=== PATIENT | male | born 1990 | race Caucasian/White ===

== ENCOUNTER → 2016-04-28 | Outpatient (CLI) | payer BC ==
--- NOTE | 2016-04-28 17:11 | MR ---
EXAMINATION TYPE: MR angio head wo con DATE OF EXAM: 04/28/2016 4:16 PM COMPARISON: NONE HISTORY: 25-year-old male with migraines TECHNIQUE: High-resolution 3-D time of flight images focusing on the [place] were performed without contrast. 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 In addition, there is an asymmetrically smaller A1 segment right anterior cerebral artery also likely on a congenital basis. Otherwise, both anterior and posterior circulations are widely patent without significant stenosis, o cclusion, or aneurysmal change. 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 No significant stenosis, arterial occlusion, or aneurysmal change seen.
--- NOTE | 2016-04-28 23:15 | MR ---
EXAMINATION TYPE: MR brain wo/w con DATE OF EXAM: 04/28/2016 4:41 PM COMPARISON: NONE HISTORY: Migraines CONTRAST: Standard multiplanar, multisequence MRI departmental protocol utilizing 14 mL intravenous MultiHance gadolinium contrast. FINDINGS: The ventricles and sulci appear normal for age. There is no mass effect nor midline shift. There is no sign of intracranial hemorrhage. There is mild mucosal thickening in the maxillary sinuse s. [place] and white matter structures have fairly normal signal pattern. There is no evidence of cerebr al edema. The corpus callosum appears normal. Sella turcica is normal. Brainstem appears intact. Cont rast images show no pathologic enhancement. IMPRESSION: Normal MRI scan of the brain. Mild maxillary sinusitis is noted.
== END | disposition home or self-care (01) ==
LOC: RADMRIMAIN 14:24
PROVIDERS: ATTEND Psychiatry & Neurology Neurology
DX: D43.2 Neoplasm of uncertain behavior of brain, unspecified (principal)
CPT/HCPCS: 70544; 70553; A9577

== ENCOUNTER 2018-09-30 21:19 | Emergency (ER) | payer BC ==
[2018-09-30] MEDS ORDERED: KETOROLAC 30 MG/ML 1 ML VIAL IM STA (22:22)
[2018-09-30] MEDS ORDERED: LIDOCAINE 5% PATCH TOPICAL STA (22:22)
[2018-09-30] MEDS ORDERED: DIAZEPAM 5 MG/ML 2 ML INJ IVP STA (22:22)
[2018-09-30] MEDS ORDERED: ACET/COD 300 MG/30 MG STARTER PACK 6 TAB BTL PO STA (23:07)
--- NOTE | 2018-09-30 23:09 | ED ---
Back Pain HPI - General Chief Complaint: Back Pain/Injury Stated Complaint: Back pain Time Seen by Provider: 09/30/18 22:00 Source: patient - History of Present Illness Initial Comments: Patient is a 28-year-old male presenting to emergency Department with low back pain. Patient reports a chronic history of low back pain. Patient reports recently seeing a chiropractor for few appointments where he was diagnosed with scoliosis. 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 Patient reports sudden onset of pain earlier today while he was a work. 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 Patient reports left paraspinal pain in the lumbosacral region that radiates along the posterior aspect of the left leg to the popliteal region. Patient reports the pain is exacerbated with extension and alleviated with flexion. Patient denies numbness or tingling in bilateral lower upper extremities. Patient denies saddle paresthesia. Patient denies urinary or bowel incontinence. No red flags. Patient denies abdominal pain, nausea or vomiting. Patient denies chest pain, chest tightness, shortness of breath, one- sided muscle weakness, syncope or dizziness. - Related Data Home Medications Medication Instructions Recorded Confirmed Aspirin/Acetaminophen/Caffeine 1 each PO DIRECTED 01/08/16 01/08/16 [Excedrin Migraine Caplet] Previous Rx's Medication Instructions Recorded Cyclobenzaprine [Flexeril] 10 mg PO TID PRN #15 tab 09/30/18 Allergies Allergy/AdvReac Type Severity Reaction Status Date / Time No Known Allergies Allergy Verified 01/08/16 14:43 Review of Systems ROS Statement: Those systems with pertinent positive or pertinent negative responses have been documented in the HPI. ROS Other: All systems not noted in ROS Statement are negative. Past Medical History Additional Past Medical History / Comment(s): migraine, chronic back pain History of Any Multi-Drug Resistant Organisms: None Reported Past Surgical History: Hernia Repair Past Psychological History: No Psychological Hx Reported Smoking Status: Current every day smoker Past Alcohol Use History: None Reported Past Drug Use History: None Reported General Exam Limitations: no limitations General appearance: alert, in no apparent distress Head exam: Present: atraumatic, normocephalic, normal inspection Eye exam: Present: normal appearance, PERRL, EOMI Pupils: Present: normal accommodation ENT exam: Present: normal exam, mucous membranes moist, normal external ear exam Neck exam: Present: normal inspection, full ROM. Absent: tenderness Respiratory exam: Present: normal lung sounds bilaterally Cardiovascular Exam: Present: regular rate, normal rhythm, normal heart sounds GI/Abdominal exam: Present: soft. Absent: distended, tenderness Extremities exam: Present: normal inspection, full ROM Back exam: Present: normal inspection, tenderness, paraspinal tenderness (Left paraspinal tenderness in the lumbosacral region). Absent: full ROM (Limited range of motion with back extension), CVA tenderness (R), CVA tenderness (L), vertebral tenderness Neurological exam: Present: alert, oriented X3 Psychiatric exam: Present: normal affect, normal mood Skin exam: Present: warm, intact, normal color Course Vital Signs 09/30/18 09/30/18 21:54 23:33 Temperature 98.2 F 97.9 F Pulse Rate 86 77 Respiratory 17 18 Rate Blood Pressure 159/107 O2 Sat by Pulse 99 97 Oximetry Medical Decision Making - Medical Decision Making Patient is a 28-year-old male presenting to emergency Department with low back pain. Based on history of physical examination I suspect the patient to have acute low back.. Patient was given a Lidoderm patch, Toradol and Valium. On reevaluation patient reports she feels better and is ready go home. Patient was also given a Tylenol 3 starter pack and discharged with Flexeril. Patient advised not to drive or operate heavy machinery when taking these medications. Patient advised to follow-up with orthopedics or physical therapy. Strict return parameters were thoroughly discussed with patient who is understanding and agreeable. Case discussed with physician. Disposition Clinical Impression: Mechanical back pain Disposition: HOME SELF-CARE Condition: Stable Instructions (If sedation given, give patient instructions): Acute Low Back Pain (ED) Additional Instructions: Please take prescribed medication as directed. Please follow with orthopedics. Please return to emergency department if symptoms worsen. Prescriptions: Cyclobenzaprine [Flexeril] 10 mg PO TID PRN #15 tab PRN Reason: Muscle Spasm Is patient prescribed a controlled substance at d/c from ED?: No Referrals: Sharon Doty MD [Primary Care Provider] - 1-2 days Karan Trujillo MD [Medical Doctor] - 1-2 days Time of Disposition: 23:09
[2018-09-30 23:34] VITALS: BP 159/107; PULSE 77; RESP 18; TEMP 97.9
== END 2018-09-30 23:32 | disposition home or self-care (01) ==
LOC: EC 21:19
DX: M54.5 Low back pain (principal); F17.200 Nicotine dependence, unspecified, uncomplicated
CPT/HCPCS: 99283; 96374; 96372; J3360; J1885

== ENCOUNTER → 2018-10-02 | Outpatient (CLI) | payer BC ==
--- NOTE | 2018-10-02 16:09 | XR ---
EXAMINATION TYPE: XR lumbosacral spine min 4V DATE OF EXAM: 10/02/2018 COMPARISON: None HISTORY: Sciatica left side TECHNIQUE: Five-view lumbar spine FINDINGS: There 5 lumbar-type vertebral bodies. Pedicles are intact. Disc heights are preserved. Vert ebral body heights are preserved. Alignment is normal. No spondylolytic defects are evident. IMPRESSION: 1. Normal 5 view lumbar spine
== END | disposition home or self-care (01) ==
LOC: RADXRMAIN 13:43
PROVIDERS: ATTEND Internal Medicine
DX: M54.32 Sciatica, left side (principal)
CPT/HCPCS: 72110

== ENCOUNTER → 2019-02-18 | Outpatient (CLI) | payer BC ==
--- NOTE | 2019-02-18 11:20 | XR ---
EXAMINATION TYPE: XR chest 2V DATE OF EXAM: 02/18/2019 COMPARISON: NONE HISTORY: Presurgical study. TECHNIQUE: Frontal and lateral views of the chest are obtained. FINDINGS: There is no focal air space opacity, pleural effusion, or pneumothorax seen. The cardiac silhouette size is within normal limits. Dextroconvex scoliosis centered the thoracic spine is presen t. IMPRESSION: No acute cardiopulmonary process.
[2019-02-18 12:30] LABS: HCT 46.4 % (39.0-53.0); HGB 15.3 gm/dL (13.0-17.5); MCH 29.8 pg (25.0-35.0); MCHC 33.1 g/dL (31.0-37.0); MCV 90.2 fL (80.0-100.0); Mean Platelet Volume 8.8; Platelet Count 200 k/uL (150-450); RBC 5.14 m/uL (4.30-5.90); RDW 12.3 % (11.5-15.5); WBC 4.2 k/uL (3.8-10.6)
[2019-02-18 12:31] LABS: Appearance,Urine Clear (Clear); Bilirubin,Urine Negative (Negative); Blood,Urine Negative (Negative); Color,Urine Yellow; Glucose,Urine (UA) Negative (Negative); Ketones,Urine Negative (Negative); Leukocyte Esterase,Urine Negative (Negative); Nitrite,Urine Negative (Negative); PH, Urine 5.5 (5.0-8.0); Protein,Urine Negative (Negative); Urobilinogen,Urine <2.0 mg/dL (<2.0)
[2019-02-18 12:37] LABS: INR 0.9 (<1.2); Partial Thromboplastin Time 26.9 sec (22.0-30.0); Prothrombin Time 10.1 sec (9.0-12.0)
[2019-02-18 12:48] LABS: ALT 32 U/L (21-72); AST 28 U/L (17-59); African American GFR (CKD) >90 (>60 ml/min/1.73 sqM); Albumin 4.8 g/dL (3.5-5.0); Alkaline Phosphatase 69 U/L (38-126); Anion Gap 7 mmol/L; Blood Urea Nitrogen 12 mg/dL (9-20); Calcium 9.9 mg/dL (8.4-10.2); Carbon Dioxide 26 mmol/L (22-30); Chloride 108 mmol/L (98-107); Glucose 73 mg/dL (74-99); Non-African American GFR(CKD) >90 (>60 ml/min/1.73 sqM); Potassium 4.5 mmol/L (3.5-5.1); Sodium 141 mmol/L (137-145); Total Bilirubin 0.5 mg/dL (0.2-1.3); Total Protein 7.3 g/dL (6.3-8.2)
== END | disposition home or self-care (01) ==
LOC: RADXRMAIN 11:01
PROVIDERS: ATTEND Orthopaedic Surgery Orthopaedic Surgery of the Spine
DX: Z01.818 Encounter for other preprocedural examination (principal); M51.27 Other intervertebral disc displacement, lumbosacral region; I49.9 Cardiac arrhythmia, unspecified
CPT/HCPCS: 36415; 71046; 80053; 81003; 85027; 85610; 85730; 93005

== ENCOUNTER 2024-01-21 22:38 | Emergency (ER) | payer BC, OTHER ==
[2024-01-21 22:42] VITALS: RESP 18; TEMP 98.2
--- NOTE | 2024-01-21 23:18 | ED ---
Chest Pain HPI - General Chief Complaint: Chest Pain Stated Complaint: Chest Pain, Face Numbness Time Seen by Provider: 01/21/24 22:48 Source: patient Mode of arrival: ambulatory Limitations: no limitations - History of Present Illness Initial Comments: This patient is a 33-year-old man who presents to have evaluation of right sided chest pain. The patient states that he had some mild discomfort there last night before he went to bed. He states that he woke up feeling pretty well, but the symptoms recurred tonight while he was at work. The patient describes as a heavy feeling. He has not noted worsening or relieving factors. No associated symptoms. MD Complaint: chest pain Onset/Timin -: days(s) Onset: during rest Pain Location: right chest Pain Radiation: none Severity: moderate Quality: heaviness Consistency: constant Improves With: nothing Worsens With: nothing Treatments Prior to Arrival: none - Related Data Home Medications Medication Instructions Recorded Confirmed Aspirin/Acetaminophen/Caffeine 1 each PO DIRECTED 01/08/16 01/08/16 [Excedrin Migraine Caplet] Previous Rx's Medication Instructions Recorded Cyclobenzaprine [Flexeril] 10 mg PO TID PRN #15 tab 09/30/18 Allergies Allergy/AdvReac Type Severity Reaction Status Date / Time No Known Allergies Allergy Verified 01/08/16 14:43 Review of Systems ROS Statement: Those systems with pertinent positive or pertinent negative responses have been documented in the HPI. ROS Other: All systems not noted in ROS Statement are negative. Constitutional: Denies: fever, chills, weakness Respiratory: Denies: cough, dyspnea Cardiovascular: Reports: chest pain. Denies: palpitations, dyspnea on exertion, orthopnea, edema, syncope Gastrointestinal: Denies: abdominal pain, nausea, vomiting, diarrhea Genitourinary: Denies: dysuria, hematuria Musculoskeletal: Denies: back pain Skin: Denies: rash Neurological: Denies: headache, weakness, numbness EKG Findings - EKG Results: EKG: interpreted by ASHVIN, sinus rhythm (With sinus arrhythmia. rate 67 bpm), normal axis, normal ST/T - Blocks, [place], Hypertrophy, ST Abn: AV and intraventricular conduction: intraventricular conduction delay Past Medical History Additional Past Medical History / Comment(s): migraine, chronic back pain History of Any Multi-Drug Resistant Organisms: None Reported Past Surgical History: Hernia Repair Past Psychological History: No Psychological Hx Reported Smoking Status: Current every day smoker, [place] Past Alcohol Use History: None Reported Past Drug Use History: None Reported General Exam Limitations: no limitations General appearance: alert, in no apparent distress Head exam: Present: atraumatic, normocephalic Eye exam: Present: normal appearance. Absent: scleral icterus, conjunctival injection ENT exam: Present: normal oropharynx Neck exam: Present: normal inspection Respiratory exam: Present: normal lung sounds bilaterally. Absent: respiratory distress, wheezes, rales, rhonchi, stridor, chest wall tenderness, accessory muscle use Cardiovascular Exam: Present: regular rate, normal rhythm, normal heart sounds. Absent: systolic murmur, diastolic murmur, rubs, gallop GI/Abdominal exam: Present: soft. Absent: distended, tenderness, guarding, rebound, rigid, mass, pulsatile mass Extremities exam: Present: normal inspection, normal capillary refill. Absent: pedal edema, calf tenderness Back exam: Present: normal inspection. Absent: CVA tenderness (R), CVA tenderness (L) Neurological exam: Present: alert Skin exam: Present: warm, dry, intact, normal color. Absent: rash Course Vital Signs 01/21/24 01/22/24 01/22/24 22:39 00:07 00:59 Temperature 98.2 F Pulse Rate 86 64 64 Respiratory 18 18 18 Rate Blood Pressure 149/103 134/91 134/90 O2 Sat by Pulse 98 100 98 Oximetry Chest Pain MDM - MDM The patient had chest x-ray that I interpreted as negative for acute infiltrate, pneumothorax, congestive heart failure. Was pt. sent in by a medical professional or institution ([facility], ARTIST'S MANAGER, urgent care, hospital, or care home...) When possible be specific @ -[No] Did you speak to anyone other than the patient for history (EMS, parent, family, police, friend...)? What history was obtained from this source @ -[No] Did you review nursing and triage notes (agree or disagree)? Why? @ -[I reviewed and agree with nursing and triage notes] Were old charts reviewed (outside hosp., previous admission, EMS record, old EKG, old radiological studies, urgent care reports/EKG's, care home records)? Report findings @ -[No old charts were reviewed] Differential Diagnosis (chest pain, altered mental status, abdominal pain women, abdominal pain men, vaginal bleeding, weakness, fever, dyspnea, syncope, headache, dizziness, GI bleed, back pain, seizure, CVA, palpatations, mental health, musculoskeletal)? @ -[Differential Chest Pain: Stable Angina, Unstable Angina, STEMI, NSTEMI Aortic Dissection, Pneumothorax, Musculoskeletal, Esophageal Spasm GERD, Cholecystitis, Pancreatitis, Zoster, this is not meant to be an all-inclusive list. EKG interpreted by me (3pts min.). @ -[I interpreted as above] X-rays interpreted by me (1pt min.). @ -[I interpreted as above CT interpreted by me (1pt min.). @ -[None done] U/S interpreted by me (1pt. min.). @ -[None done] What testing was considered but not performed or refused? (CT, X-rays, U/S, labs)? Why? @ -[None] What meds were considered but not given or refused? Why? @ -[None] Did you discuss the management of the patient with other professionals (professionals i.e. , PA, ARTIST'S MANAGER, lab, RT, psych nurse, social scientist, log chain worker, teacher, surface to air weapons officer, manager rn case)? Give summary @ -[No] Was smoking cessation discussed for >3mins.? @ -[Yes Was critical care preformed (if so, how long)? @ -[No] Were there social determinants of health that impacted care today? How? (Homelessness, low income, unemployed, alcoholism, drug addiction, transportation, low edu. Level, literacy, decrease access to med. care, nursing home, rehab)? @ -[No] Was there de-escalation of care discussed even if they declined (Discuss DNR or withdrawal of care, Hospice)? DNR status @ -[No] What co-morbidities impacted this encounter? (DM, HTN, Smoking, COPD, CAD, Cancer, CVA, ARF, Chemo, Hep., AIDS, mental health diagnosis, sleep apnea, morbid obesity)? @ -[None] Was patient admitted / discharged? Hospital course, mention meds given and route, prescriptions, significant lab abnormalities, going to OR and other pertinent info. @ -[Patient is a 33-year-old man presenting with chest pain. The patient's exam and workup are unremarkable. He is feeling better. We discussed that he does have risk factors for cardiac disease. At this point he wants to go home. I stressed the need to return if any symptoms recur. Also given the risk factors he will follow-up with cardiology in the near future to have further evaluation and treatment. Undiagnosed new problem with uncertain prognosis? @ -[No] Drug Therapy requiring intensive monitoring for toxicity (Heparin, Nitro, Insulin, Cardizem)? @ -[No] Were any procedures done? @ -[No] Diagnosis/symptom? @ -[Acute chest pain Acute, or Chronic, or Acute on Chronic? @ -[Acute Uncomplicated (without systemic symptoms) or Complicated (systemic symptoms)? @ -[Uncomplicated Side effects of treatment? @ -[No] Exacerbation, Progression, or Severe Exacerbation? @ -[No] Poses a threat to life or bodily function? How? (Chest pain, [place], [place], pneumonia, PE, COPD, DKA, ARF, appy, cholecystitis, CVA, Diverticulitis, Homicidal, Suicidal, threat to staff... and all critical care pts) @ -[Yes there is risk, requires cardiology follow-up in the near term Disposition Clinical Impression: Chest pain Disposition: HOME SELF-CARE Condition: Good Instructions (If sedation given, give patient instructions): Chest Pain (ED) Additional Instructions: We discussed, with your risk factors you should see the drilling foreman to arrange a stress test. If your symptoms recur or if you are not feeling right in any way return to the emergency department. Is patient prescribed a controlled substance at d/c from ED?: No Referrals: Sharon Doty MD [Primary Care Provider] - 1-2 days Tommie Bean MD [STAFF PHYSICIAN] - 1-2 days
[2024-01-21] MEDS: ASPIRIN 81 MG PO STA (23:34)
[2024-01-21] MEDS: NITROGLYCERIN SL TABS 0.4 MG TAB SUBLINGUAL STA (23:36)
--- NOTE | 2024-01-21 23:43 | XR ---
EXAMINATION TYPE: XR chest 2V DATE OF EXAM: 01/21/2024 COMPARISON: Chest x-ray February 18, 2019 HISTORY: Chest pain TECHNIQUE: Frontal and lateral views of the chest are obtained. FINDINGS: There is no focal air space opacity, pleural effusion, or pneumothorax seen. The cardiac silhouette size is stable and within normal limits. There is scoliosis redemonstrated. Overlying EKG leads are in current study. IMPRESSION: No acute process. No significant change from most recent prior. [facility], , 01/21/2024 11:41 PM
[2024-01-22 00:02] LABS: Basophils % (A) 0 %; Eosinophils # (A) 0.1 k/uL (0-0.7); Eosinophils % (A) 2 %; HCT 41.7 % (39.0-53.0); HGB 14.1 gm/dL (13.0-17.5); Lymphocytes # (A) 2.7 k/uL (1.0-4.8); Lymphocytes % (A) 41 %; MCH 29.9 pg (25.0-35.0); MCHC 33.9 g/dL (31.0-37.0); MCV 88.3 fL (80.0-100.0); Mean Platelet Volume 9.9; Monocytes # (A) 0.4 k/uL (0-1.0); Monocytes % (A) 6 %; Neutrophils # (A) 3.3 k/uL (1.3-7.7); Neutrophils % (A) 50 %; Platelet Count 206 k/uL (150-450); RBC 4.73 m/uL (4.30-5.90); RDW 12.6 % (11.5-15.5); WBC 6.7 k/uL (3.8-10.6)
[2024-01-22 00:07] VITALS: PULSE 64
[2024-01-22 00:09] LABS: ALT 17 U/L (4-49); AST 26 U/L (17-59); African American GFR (CKD) >90 (>60 ml/min/1.73 sqM); Albumin 4.2 g/dL (3.5-5.0); Alkaline Phosphatase 73 U/L (38-126); Anion Gap 8 mmol/L; Blood Urea Nitrogen 14 mg/dL (9-20); Calcium 9.2 mg/dL (8.4-10.2); Carbon Dioxide 20 mmol/L (22-30); Chloride 110 mmol/L (98-107); Glucose 104 mg/dL (74-99); Magnesium 1.9 mg/dL (1.6-2.3); Non-African American GFR(CKD) >90 (>60 ml/min/1.73 sqM); Potassium 3.5 mmol/L (3.5-5.1); Sodium 138 mmol/L (137-145); Total Bilirubin 0.6 mg/dL (0.2-1.3); Total Protein 6.6 g/dL (6.3-8.2)
[2024-01-22 00:15] LABS: Partial Thromboplastin Time 27.6 sec (22.0-30.0); Prothrombin Time 11.4 sec (10.0-12.5)
[2024-01-22 01:00] VITALS: BP 134/90
== END 2024-01-22 01:00 | disposition home or self-care (01) ==
LOC: EC 22:38
DX: R07.89 Other chest pain (principal); F17.290 Nicotine dependence, other tobacco product, uncomplicated
CPT/HCPCS: 36415; 71046; 80053; 83735; 84484; 85025; 85379; 85610; 85730; 93005; 99285